=== PATIENT | male | born 1980 | race Caucasian/White ===

== ENCOUNTER 2022-11-24 21:08 | Emergency (ER) | payer OTHER ==
[~2022-11-24] VITALS: Ht 170.1 cm; Wt 83.9 kg
== END 2022-11-24 22:23 | disposition home or self-care (01) ==
LOC: ED 21:08
DX: S93.401A Sprain of unspecified ligament of right ankle, initial encounter (principal); W22.8XXA Striking against or struck by other objects, initial encounter; Y93.89 Activity, other specified; Y92.89 Other specified places as the place of occurrence of the external cause; Y99.8 Other external cause status

== ENCOUNTER 2023-01-19 16:57 | Emergency (ER) | payer OTHER ==
[~2023-01-19] VITALS: Ht 167.6 cm; Wt 83.9 kg
== END 2023-01-19 19:00 | disposition home or self-care (01) ==
LOC: ED 16:57
DX: M25.512 Pain in left shoulder (principal)

== ENCOUNTER 2023-03-01 16:46 | Emergency (ER) | payer OTHER ==
[~2023-03-01] VITALS: Ht 167.6 cm; Wt 85.3 kg
[2023-03-01] MEDS ORDERED: PREDNISONE50 MG PO (18:33)
== END 2023-03-01 18:39 | disposition home or self-care (01) ==
LOC: ED 16:46
DX: S46.211A Strain of muscle, fascia and tendon of other parts of biceps, right arm, initial encounter (principal); X50.0XXA Overexertion from strenuous movement or load, initial encounter; Y93.89 Activity, other specified; Y92.89 Other specified places as the place of occurrence of the external cause; Y99.0 Civilian activity done for income or pay

== ENCOUNTER 2023-05-08 15:24 | Emergency (ER) | payer OTHER ==
[~2023-05-08] VITALS: Ht 167.6 cm; Wt 81.6 kg
[~2023-05-08 15:24] MED LIST: PREDNISONE50 MG PO
[2023-05-08] MEDS ORDERED: SUBOXONE 8 MG-1 EACH SL (15:45)
== END 2023-05-08 18:25 | disposition home or self-care (01) ==
LOC: ED 15:24
DX: S93.401A Sprain of unspecified ligament of right ankle, initial encounter (principal); Z87.891 Personal history of nicotine dependence; X50.1XXA Overexertion from prolonged static or awkward postures, initial encounter; Y93.01 Activity, walking, marching and hiking; Y92.009 Unspecified place in unspecified non-institutional (private) residence as the place of occurrence of the external cause; Y99.0 Civilian activity done for income or pay

== ENCOUNTER 2023-12-23 15:33 | Emergency (ER) | payer SELFPAY ==
[~2023-12-23] VITALS: Ht 167.6 cm; Wt 83.9 kg
[~2023-12-23 15:33] MED LIST changes: +SUBOXONE 8 MG-1 EACH SL
[2023-12-23] MEDS ORDERED: Acetaminophen/Hydrocodone 5 MG/325 MG TABLET PO ONE (16:20)
[2023-12-23] MEDS ORDERED: ZANAFLEX4 MG PO (18:45)
[2023-12-23] MEDS ORDERED: NAPROSYN500 MG PO (18:45)
== END 2023-12-23 19:16 | disposition home or self-care (01) ==
LOC: ED 15:33
DX: S53.401A Unspecified sprain of right elbow, initial encounter (principal); S46.911A Strain of unspecified muscle, fascia and tendon at shoulder and upper arm level, right arm, initial encounter; S60.221A Contusion of right hand, initial encounter; W17.89XA Other fall from one level to another, initial encounter; Y93.89 Activity, other specified; Y92.89 Other specified places as the place of occurrence of the external cause; Y99.8 Other external cause status